=== PATIENT | female | born 1990 | race African-American/Black ===

== ENCOUNTER 2019-04-05 14:54 | Emergency (ER) | payer MEDICAID, OTHER ==
[2019-04-05 16:21] LABS: BILIRUBIN,URINE NEGATIVE (NEGATIVE); GLUCOSE, URINE (UA) NEGATIVE (NEGATIVE); KETONES,URINE (UA) NEGATIVE (NEGATIVE); LEUKOCYTE ESTERASE, URINE NEGATIVE (NEGATIVE); NITRITE,URINE NEGATIVE (NEGATIVE); OCCULT BLOOD,URINE NEGATIVE (NEGATIVE); PROTEIN,URINE NEGATIVE (NEGATIVE); UROBILINOGEN,URINE 0.2 (NORMAL) E.U./dL (NORMAL)
[2019-04-05 16:25] LABS: CLARITY,URINE CLEAR (CLEAR); HCG UR QUAL NEGATIVE
--- NOTE | 2019-04-05 16:43 | ED Physician Documentation ---
History of Present Illness - Stated complaint Stated Complaint: FEM /FEVER - Chief complaint Chief Complaint: General - History obtained from History obtained from: Patient - Additonal information Additional information: Patient is a previously healthy 29-year-old female presenting with episode of abnormal vaginal bleeding earlier today that resolved spontaneously, as well as thin white vaginal discharge that smells of a fishy odor over the past several days. Patient reports usually having protected sex, however, had unprotected sex with a male partner earlier this month. Patient denies urinary changes, stool changes, other vaginal discharge or pain, rashes or lesions to the groin. She does not believe her partner has history of STDs and she denies history of STDs. Patient also denies other back pain, but admits to lower abdominal pain laterally. Patient denies nausea, vomiting, fever or other complaints. No other improving or worsening factors noted. Review of Systems Constitutional: denies: Fever GI: reports: Abdominal Pain. denies: Nausea, Vomiting, Diarrhea : reports: Vaginal bleeding. denies: Dysuria Musculoskeletal: denies: Back pain PD PAST MEDICAL HISTORY - Past Medical History Past Medical History: No - Past Surgical History Past Surgical History: No - Present Medications Home Medications: Ambulatory Orders Medication Instructions Recorded Confirmed Metronidazole [Flagyl] 500 mg PO BID 7 Days tablet 04/05/19 PD ED PE NORMAL - Vitals Vital signs reviewed: Yes - General General: Alert and oriented X 3, No acute distress, Well developed/nourished - HEENT HEENT: Atraumatic, Moist mucous membranes - Neck Neck: Supple, no meningeal sign - Cardiac Cardiac: RRR, No murmur - Respiratory Respiratory: No respiratory distress, Clear bilaterally - Abdomen Abdomen: Soft, Non tender, Non distended - Derm Derm: Normal color, Warm and dry, No rash - Extremities Extremities: No deformity, No tenderness to palpate - Neuro Neuro: Alert and oriented X 3, No motor deficit, No sensory deficit - Psych Psych: Normal mood, Normal affect Results - Vitals Vitals: Vital Signs - 24 hr 04/05/19 15:03 Temperature 36.7 C Heart Rate 64 Respiratory 14 Rate Blood Pressure 132/75 H O2 Saturation 99 Oxygen O2 Source Room air - Labs Labs: Microbiology 04/05/19 17:20 Wet Prep - Final Genital - Vaginal Laboratory Tests 08/11/19 08/11/19 08/11/19 15:35 16:53 16:53 WBC 10.3 RBC 4.97 Hgb 13.6 Hct 41.8 MCV 84.1 MCH 27.4 MCHC 32.5 RDW 18.4 H Plt Count 275 MPV 10.0 Neut # (Auto) 6.6 Lymph # (Auto) 2.7 Rowan # (Auto) 0.5 Eos # (Auto) 0.3 Baso # (Auto) 0.1 Absolute Nucleated RBC 0.00 Nucleated RBC % 0.0 Sodium 141 Potassium 3.8 Chloride 103 Carbon Dioxide 26 Anion Gap 12.0 BUN 13 Creatinine 0.9 Estimated GFR (MDRD) 91 Glucose 89 Calcium 9.6 Total Bilirubin 0.7 AST 19 ALT 15 Alkaline Phosphatase 38 L Total Protein 7.6 Albumin 4.2 Globulin 3.4 Albumin/Globulin Ratio 1.2 Lipase 39 Urine Color YELLOW Urine Clarity CLEAR Urine pH 5.0 Ur Specific [place] 1.020 Urine Protein NEGATIVE Urine Glucose (UA) NEGATIVE Urine Ketones NEGATIVE Urine Occult Blood NEGATIVE Urine Nitrite NEGATIVE Urine Bilirubin NEGATIVE Urine Urobilinogen 0.2 (NORMAL) Ur Leukocyte Esterase NEGATIVE Ur Microscopic Review NOT INDICATED Urine Culture Comments NOT INDICATED Urine HCG, Qual NEGATIVE PD MEDICAL DECISION MAKING - ED course Complexity details: reviewed results, re-evaluated patient, considered differential, d/w patient ED course: Patient presenting with symptoms indicative of bacterial vaginosis and also reports concern for possible STD exposure given unprotected sex, although she does not have history of such and her male partner does not have history of such as far she knows. At this time, will obtain STD screening and bacterial vaginosis swabs and will treat empirically for such. Remainder of physical exam is extremely unremarkable. Certainly, no acute or surgical abdomen present. Have low suspicion for ovarian torsion, ovarian cyst, PID, appendicitis, gallbladder disease, liver disease, pancreatitis, diverticulitis, renal disease, UTI or otherwise at this time. testing negative and do not have concerns for ectopic or otherwise. Urinalysis does not reflect infection. Screening lab work also relatively unremarkable. Patient received antibiotics in the ED and will receive prescription for home.Also discussed safe sex practices, supportive cares, return precautions and follow- up. Patient voiced understanding and is comfortable with discharge plan. Departure - Departure Disposition: 01 Home, Self Care Clinical Impression: Bacterial vaginosis, Concern about STD in female without diagnosis Condition: Good Instructions: STDs, ED Vaginosis Bacterial Follow-Up: your,doctor [Other] - Within 3 Days Prescriptions: Metronidazole [Flagyl] 500 mg PO BID 7 Days tablet Comments: Please practice safe sex practices and have all partners be evaluated and treated if necessary prior to returning to sexual contact. Please take Flagyl as prescribed to treat bacterial vaginosis. Recommend taking with small amount of food to avoid upset stomach. Please do not take this medication with alcohol. Follow-up with primary care physician in next 2 to 3 days and return to ED sooner if experience worsening symptoms or have other concerns.
[2019-04-05 16:56] LABS: BASOPHILS # (AUTO) 0.1 10^3/uL (0.0-0.1); BASOPHILS % (AUTO) 0.9 %; EOSINOPHILS # (AUTO) 0.3 10^3/uL (0.0-0.7); EOSINOPHILS % (AUTO) 3.3 %; HGB - HEMOGLOBIN 13.6 g/dL (12.0-16.0); LYMPHOCYTES # (AUTO) 2.7 10^3/uL (1.5-3.5); LYMPHOCYTES % (AUTO) 26.3 %; MEAN CORPUSCULAR HEMOGLOBIN 27.4 pg (27.0-31.0); MEAN CORPUSCULAR HGB CONC 32.5 g/dL (32.0-36.0); MEAN CORPUSCULAR VOLUME 84.1 fL (81.0-99.0); MONOCYTES # (AUTO) 0.5 10^3/uL (0.0-1.0); NEUTROPHILS # (AUTO) 6.6 10^3/uL (1.5-6.6); NEUTROPHILS % (AUTO) 64.2 %; PLT - PLATELET COUNT 275 10^3/uL (130-450); RED BLOOD COUNT 4.97 10^6/uL (4.20-5.40); RED CELL DISTRIBUTION WIDTH 18.4 % (12.0-15.0); WHITE BLOOD COUNT 10.3 x10^3/uL (4.8-10.8)
[2019-04-05 17:11] LABS: ALBUMIN 4.2 g/dL (3.2-5.5); ALBUMIN/GLOBULIN RATIO 1.2 (1.0-2.2); BILIRUBIN,TOTAL 0.7 mg/dL (0.2-1.0); CALCIUM 9.6 mg/dL (8.5-10.3); CREATININE 0.9 mg/dL (0.4-1.0); TOTAL PROTEIN 7.6 g/dL (6.7-8.2)
[2019-04-05] MEDS ORDERED: metroNIDAZOLE 250 MG TABLET PO STA (17:57)
[2019-04-05] MEDS ORDERED: cefTRIAXone 250 MG VIAL IM STA (17:57)
[2019-04-05] MEDS ORDERED: AZITHROMYCIN 250 MG TABLET PO STA (17:57)
[2019-04-05] MEDS ORDERED: LIDOCAINE 1% 2 ML VIAL MC ONE (17:57)
[2019-04-05 18:29] VITALS: BP 116/73
[2019-04-05 21:36] LABS: TRICHOMONAS VAGINALIS DNA NEGATIVE (NEGATIVE)
== END 2019-04-05 18:27 | disposition home or self-care (01) ==
LOC: ED 14:54
DX: N76.0 Acute vaginitis (principal); B96.89 Other specified bacterial agents as the cause of diseases classified elsewhere; Z20.2 Contact with and (suspected) exposure to infections with a predominantly sexual mode of transmission
CPT/HCPCS: 36415; 80053; 81003; 81025; 83690; 85025; 87210; 87491; 87591; 87661; 96372; 99283; 99284; A9270; 81001; 87086